=== PATIENT | male | born 1955 | race Caucasian/White ===

== ENCOUNTER → 2023-07-29 06:22 | Day surgery (SDC) | payer BC, SELFPAY | LOC: GI 06:22 | PROVIDERS: ATTENDING PHYSICIAN Specialist; FAMILY PHYSICIAN Family Medicine | DX: K29.50 Unspecified chronic gastritis without bleeding (principal); K22.89 Other specified disease of esophagus; K20.90 Esophagitis, unspecified without bleeding; K31.89 Other diseases of stomach and duodenum; R11.0 Nausea; R10.13 Epigastric pain | CPT/HCPCS: 43239; 88305; 88342 ==

== ENCOUNTER → 2023-08-19 07:38 | Outpatient (REF) | payer BC, SELFPAY | LOC: HWRAD 07:38 | PROVIDERS: ATTENDING PHYSICIAN Specialist; FAMILY PHYSICIAN Family Medicine | DX: R11.0 Nausea (principal) | CPT/HCPCS: 76700 ==

== ENCOUNTER 2024-01-31 06:17 | Day surgery (SDC) | payer BC, SELFPAY ==
[2024-01-31] VITALS (15 sets, daily range): BP systolic 109–151; BP diastolic 73–89; BMI 28.6
[2024-01-31] MEDS: NSS 500 IV (07:18)
--- NOTE | 2024-01-31 09:54 | ITS.CL.ABL ---
Color Separation Photographer - Ablation
Ablation
Procedure Report:
Atrial Flutter ablation:
Mr. Charles is a very pleasant 68 yr old gentleman with h/o WPW and noted to have recurrent tachycardia presented for EP study and ablation.
Date of the Procedure:
01/31/2024
Indications:
Recurrent tachycardia
Pre-Operative Diagnosis:
Tachycardia
Post-Operative Diagnosis:
Supra-ventricular tachycardia with Typical Atrial Flutter
Atrioventricular marcello tachycardia
Procedure Performed:
EP study
Atrial flutter ablation with cavo-tricuspid isthmus line block formation
Slow pathway modification for AVNRT
Performing Physician:
Sharla Owens MD
Assistants:
EP staff
Anesthesia:
See anesthesia records
Detailed Description of the Procedure:
Written informed consent was obtained from the patient after a full explanation of the risks and benefits of the procedure including the risks of sedation and anesthesia.
The patient was brought to the electrophysiology laboratory in stable condition in fasting state. Continuous electrocardiographic and hemodynamic monitoring was initiated.
The initial rhythm was sinus rhythm.
The procedure site was meticulously prepared with surgical scrub and allowed to dry with no pooling. Sterile draping was applied to cover the procedure site. The image intensifier was draped with sterile bag and positioned over the patient.
After infusion of local anesthetic, vascular access was obtained under ultrasound guidance and sheaths were placed over guide wire as detailed below.
Sheath and Catheter Placement:
The following catheters / sheaths were placed
Sheaths:
��������� 8Fr in right femoral vein � upgraded to Agilis sheath
��������� 7Fr in the right femoral vein
��������� 6Fr in the right femoral vein
Catheters:
��������� [employer] Thermocool STSF bidirectional� - at locations of HRA, RV, CS and His.
��������� Decapolar catheter - at locations of CS
��������� Víctor Quad in RVa
A 7000 units of heparin was given after the access was complete.
Baseline intervals (milliseconds):
PP interval (baseline cycle length): 987
P wave duration: 85
OR interval: 133
QRS duration:111
QT interval: 435
P onset to HRA: 0
P onset to AVJ: 34
AH interval: 62
HV interval: 44
Q onset to RVa: 0
Sinus Node Function:
Burst pacing was performed from the right atrium to measure the sinus node recovery time (SNRT) and corrected sinus node recovery time (cSNRT). The sinus node functions are within acceptable normal range.
Atrioventricular Marcello Function:
Atrial stimulation with incremental pacing intervals was performed from the high right atrium (HRA) and right ventricular apex (RVa) and antegrade and retrograde atrioventricular (AV) block cycle lengths were determined. The antegrade AV Wenckebach
was noted at 360 msec.
Programmed atrial stimulation was performed with drive train of 600 msec followed by a single atrial extra-stimulus and the AV marcello and the atrial ERPs were determined. The AV marcello ERP was </= 600/270 msec and the atrial ERP was 270msec under
sedation.
There was normal decremental conduction noted through the AV node. The programmed stimuli showed no obvious jump..
There was no pre-excitation noted with EKG and the CS is concentric withuot any evidence of left lateral pathway.
Ventricular stimulation showed concentric, midline and decremental retrograde conduction through the AV node and VA Wenckebach was 390 msec. The retrograde AV marcello ERP was <600/[address] train of 600 msec.
Ventricular Function:
Ventricular stimulation showed concentric, midline and decremental retrograde conduction through the AV node and VA Wenckebach was 390 msec. The ventricular electrical functions are within acceptable range.
Para-Hisian pacing:
The anteroseptal pathway prompted the study and Para-Hisian pacing was attempted. The high voltage captured the His with narrow QRS and VA time was 89 msec. The low voltage captured the RV with wide QRS and the VA time was 146 msec. This is a marcello
response and septal ventriculo-atrial accessory pathway was ruled out.�
Arrhythmia Induction:
The EP study induced tachycardia spontaneously. There was a wobble the the tachycardia but it terminated before it could be studied in detail.
Programmed stimulation was able to generate tachycardia at 480 msec that was sustained and was mapped and entrained.
The tachycardia was studies with a cycle length of 480 msec. The tachycardia was concentric and had short VA time. The tachycardia was entrained from the ventricle and the proximal CS. The ventricle was out of the tachycardia cycle.
Following observations were noted.�
a) Simultaneous A and V (Septal VA interval of <70 ms was at 47msec).
b) Ventricular Overdrive pacing demonstrated a VAHV response
c) SA-VA >85 (191 � 47)
d) PPI-TCL >115msec (547 msec)
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
Ablation # 1: Electroanatomic 3D Mapping (EAM) and AVNRT Ablation:
EAM and radiofrequency ablation was performed using a non-irrigation, but contact force sesning 3.5 mm [employer] STSF smart touch radiofrequency ablation catheter. 3D mapping was performed with Carto software. Cardiac anatomy as established. His
cloud was established. The triangle of Law was marked with ablation catheter.
A slow pathway AVNRT ablation was pursued. Radiofrequency ablation lesions were applied to the anatomic slow pathway area targeting spike and dome electrograms with > 1:7 A:V ratio just below the His cloud. There were multitude of slow Junctional
beats with 1:1 VA relationship noted. There was no non-conducted beat.
Tachycardia:
Post ablation EP study was done and burst pacing done that induced a sustained tachycardia at 250 msec CL.
The tachycardia was studied in detail.� the cycle length was 250 msec. The entrainement from the CTI isthmus and the prox CS was in the flutter circuit.
Electroanatomic mapping (EAM):
The right atrium was mapped in the tachycardia. The tachycardia was fast but hemodynamically stable and could be mapped. The obtained maps of the tachycardia and the electrograms were studied in detail. EAM showed counter clockwise typical atrial
flutter with cavo tricuspid isthmus dependence
Ablation # 2: Typical Atrial Flutter Ablation:
Radiofrequency ablation was performed using a 3.5mm, open irrigation, force-sensing bidirectional ablation catheter ([employer] STSF) in the cavotricuspid isthmus from the tricuspid annulus to the IVC ridge.
The flutter slowed and terminated into sinus rhythm once the CTI block was achieved.
Post ablation mapping was done:
Following observations were noted.
��������������� -Bidirectional block was confirmed across the CTI line with differential pacing.
��������������� -Double potentials were spaced greater than 92 msec apart.
��������������� -The conduction time across the CTI line from proximal CS pacing was 137 msec.
��������������� -EAM of the right atrium was obtained with coronary sinus pacing and showed a line of block at the CTI.
��������������� -The time interval just lateral to the ablation lesions was 137 msec and the lateral wall was 92 msec
��������������� - All these maneuvers confirmed the block at the CTI line.
- Post ablation HV interval was unchanged at 44 msec
The patient was observed in the EP lab for 15 minutes and the repeat study showed stable block at the CTI location and CTI conduction time was 138 msec.
Full EP study was done that showed normal atrial, ventricular and AV marcello functions without any accessory pathway. Aggressive maneuvers were performed but failed to induce any arrhythmia.
Procedure End
Following the completion of the EP study, catheters were removed. The sheaths were removed and hemostasis achieved with VASCADE and manual compression.
Estimated Blood loss:
<5 cc
Specimens Removed:
None.
Implants / Devices:
None
Urine output:
None
Packs / Drains/ Tubes:
None
Instrument / Sponge Count Correct:
Yes
Fluoro time:
0 - Flouroless
Complications of the Procedure:
None
Condition of Patient at Time of Transfer:
Hemodynamically stable with no neurological or vascular compromise.
Summary:
Successful SVT ablation with AV marcello reentry tachycardia ablation with slow pathway modification and typical atrial flutter ablation with cavo-tricuspid isthmus line of block formation.
.
== END 2024-01-31 12:50 | disposition home or self-care (01) ==
LOC: CATH 06:17
PROVIDERS: ATTENDING PHYSICIAN Internal Medicine Cardiovascular Disease; FAMILY PHYSICIAN Family Medicine
DX: I48.3 Typical atrial flutter (principal); I47.19 Other supraventricular tachycardia; I10 Essential (primary) hypertension; Z79.82 Long term (current) use of aspirin
CPT/HCPCS: C1769; C1894; C1730; C1732; C1766; C1892; 76937; 86850; 86900; 86901; 93005; 93653; 93655; C1760

== ENCOUNTER → 2025-01-01 15:07 | Outpatient (REF) | payer MEDICARE, OTHER, SELFPAY | LOC: MRI 3T 15:07 | PROVIDERS: ATTENDING PHYSICIAN Specialist; FAMILY PHYSICIAN Family Medicine | DX: M19.011 Primary osteoarthritis, right shoulder (principal); M25.511 Pain in right shoulder | CPT/HCPCS: 73221 ==

== ENCOUNTER → 2025-03-21 09:21 | Outpatient (REF) | payer MEDICARE, OTHER, SELFPAY | LOC: HWRAD 09:21 | PROVIDERS: ATTENDING PHYSICIAN Family Medicine | DX: R11.0 Nausea (principal); R10.13 Epigastric pain | CPT/HCPCS: 76700 ==

== ENCOUNTER → 2025-05-15 13:32 | Outpatient (REF) | payer MEDICARE, OTHER, SELFPAY | LOC: RAD 13:32 | PROVIDERS: ATTENDING PHYSICIAN Family Medicine | DX: R29.890 Loss of height (principal); Z79.899 Other long term (current) drug therapy; Z82.62 Family history of osteoporosis | CPT/HCPCS: 77080 ==

== ENCOUNTER → 2025-06-08 14:17 | Outpatient (REF) | payer MEDICARE, OTHER, SELFPAY | LOC: MRI 14:17 | PROVIDERS: ATTENDING PHYSICIAN Specialist; FAMILY PHYSICIAN Family Medicine | DX: R93.89 Abnormal findings on diagnostic imaging of other specified body structures (principal) | CPT/HCPCS: 74183; 76391; A9581 ==